=== PATIENT | male | born 1995 | race Caucasian/White ===

== ENCOUNTER 2020-07-22 11:54 | Inpatient (IN) | payer MEDICAID ==
[~2020-07-22] VITALS: Ht 170.2 cm; Wt 94.9 kg
--- NOTE | 2020-07-22 12:57 | NUR ---
BIBS FROM HOME TO ER BED 7. AAOX4. NOT IN RESP DISTRESS, BREATHIGN EVEN AND UNLABORED. AMBULATORY. IN FOR POLYDIPSIA AND FEELING WEAK. PT REPORTS THAT HE IS ALWAYS THIRSTY. HE REPORT HAVEING THE COVID VACCINE BACK IN JULY 08 THEN THE SYMPTOMS STARTED. MD WAS AT THE BEDSIDE FOR EVAL. ORDER RECEIVED, NOTED AND CARRIED OUT.
[2020-07-22] MEDS ORDERED: IV NS 0.9% 1,000 ML BAG IV ONE ×2 (13:00→14:00)
[2020-07-22 13:25] LABS: BASOPHILS # (AUTO) 0.1 /CMM (0.0-0.2); BASOPHILS % (AUTO) 0.8 % (0.0-2.0); HEMATOCRIT 51 % (39-51); HEMOGLOBIN 17.3 g/dL (13.5-17.5); LYMPHOCYTES # (AUTO) 1.9 /CMM (0.8-4.8); LYMPHOCYTES % (AUTO) 21.4 % (20.0-44.0); MEAN CORPUSCULAR HGB CONC 34 g/dl (31.0-36.0); MEAN CORPUSCULAR VOLUME 93 fL (80-96); MONOCYTES # (AUTO) 0.5 /CMM (0.1-1.30); MONOCYTES % (AUTO) 6.3 % (2.0-12.0); NEUTROPHILS # (AUTO) 6.1 /CMM (1.8-8.9); NEUTROPHILS % (AUTO) 70.5 % (43.0-81.0); PLATELET COUNT (AUTO) 192 /CMM (150-450); RED BLOOD CELL COUNT(AUTO) 5.48 MIL/uL (4.5-6.0); WHITE BLOOD COUNT (AUTO) 8.7 K/uL (4.3-11.0)
[2020-07-22 13:41] LABS: ALANINE AMINOTRANSFERASE 187 U/L (12-78); ALBUMIN 4.3 g/dL (3.4-5.0); ALKALINE PHOSPHATASE 125 U/L (46-116); ASPARTATE AMINOTRANSFERASE 52 U/L (15-37); BILIRUBIN,DIRECT 0.5 mg/dL (0.0-0.2); BILIRUBIN,TOTAL 1.4 mg/dL (0.2-1.0); CARBON DIOXIDE 23 mmol/L (21-32); CHLORIDE 95 mmol/L (98-107); CREATININE 1.4 mg/dL (0.6-1.3); LIPASE 185 U/L (73-393); SODIUM SERUM 133 mmol/L (136-145); TOTAL PROTEIN, SERUM 8.2 g/dL (6.4-8.2); UREA NITROGEN, BLOOD 14 mg/dL (7-18)
[2020-07-22 13:47] LABS: GLUCOSE 739 mg/dL (74-106)
[2020-07-22] MEDS ORDERED: INSULIN REGULAR, HUMAN 100 UNIT/ML 10 ML VIAL ONE (13:54)
[2020-07-22] MEDS ORDERED: INSULIN REGULAR, HUMAN 100 UNIT/ML 10 ML VIAL SQ ONE (14:00)
--- NOTE | 2020-07-22 14:02 | NUR ---
[facility].
--- NOTE | 2020-07-22 14:18 | NUR ---
CALLED NURSING SUP FOR M/S BED.
--- NOTE | 2020-07-22 16:23 | NUR ---
NURSING SUP GAVE [phone].
--- NOTE | 2020-07-22 16:40 | NUR ---
RECEIVED REPORT FROM SONYA BROWER FOR TRUMAN
--- NOTE | 2020-07-22 16:42 | NUR ---
REPORT GIVEN TO SONYA REED FOR TRUMAN
--- NOTE | 2020-07-22 16:50 | NUR ---
MS RN NOTE PATIENT WAS BROUGHT UP VIA GURNEY. PT IS A/O X4. AMBULATORY. ON ROOM AIR, NO SOB NOTED. IN NO APPARENT DISTRESS. DENIES ANY PAIN OR DISCOMFORT AT THIS TIME. IV ACCESS ON L AC #18, INTACT. BS OF 310, INSULIN GIVEN PER PROTOCOL. ABLE TO MAKE NEEDS KNOWN. SAFETY MEASURES MAINTAINED. BED IN LOWEST POSITION, BRAKES LOCKED. SIDE RAILS UP X2. CALL LIGHT WITHIN REACH. WILL ENDORSE CONTINUITY OF CARE TO ONCOMING SHIFT.
--- NOTE | 2020-07-22 16:56 | NUR ---
PT TRANSPORTED TO UNIT W/ EMT AT [facility] ON [facility] ON STABLE CONDITION.
[2020-07-22 17:00] VITALS: BP 121/75
[2020-07-22] MEDS ORDERED: ACETAMINOPHEN 325 MG TABLET PO PRN (17:00)
[2020-07-22] MEDS ORDERED: ONDANSETRON HCL/PF 4 MG/2 ML VIAL IVP PRN (17:00)
[2020-07-22] MEDS ORDERED: MAGNESIUM HYDROXIDE 30 ML UDC PO PRN (17:00)
[2020-07-22] MEDS ORDERED: DEXTROSE 50%-WATER 50 ML DISP.SYRIN IV PRN (17:00)
[2020-07-22] MEDS ORDERED: MAG HYDROX/AL HYDROX/SIMETH 30 ML UDC PO PRN (17:00)
[2020-07-22] MEDS: BLOOD SUGAR DIAGNOSTIC 1 EACH STRIP IN SCH ×2 (17:43→20:54)
[2020-07-22] MEDS: INSULIN REGULAR, HUMAN 100 UNIT/ML 3 ML VIAL SQ PRN ×2 (17:45→20:50)
--- NOTE | 2020-07-22 19:10 | NUR ---
MS RN OPENING NOTES: RECEIVED PATIENT IN BED, AWAKE, A/O X4. NO S/S OF DISTRESS NOTED. CALL LIGHT WITHIN REACH. BED IN LOWEST AND LOCKED POSITION. NO COMPLAIN OF PAIN. AMBULATORY.
[2020-07-22 20:00] VITALS: BP 140/80
[2020-07-23 06:18] LABS: BASOPHILS # (AUTO) 0.1 /CMM (0.0-0.2); BASOPHILS % (AUTO) 0.8 % (0.0-2.0); EOSINOPHILS % (AUTO) 3.3 % (0.0-6.0); HEMATOCRIT 41 % (39-51); HEMOGLOBIN 14.4 g/dL (13.5-17.5); LYMPHOCYTES # (AUTO) 2.9 /CMM (0.8-4.8); MEAN CORPUSCULAR HGB CONC 35 g/dl (31.0-36.0); MEAN CORPUSCULAR VOLUME 90 fL (80-96); MONOCYTES # (AUTO) 0.5 /CMM (0.1-1.30); MONOCYTES % (AUTO) 6.8 % (2.0-12.0); NEUTROPHILS # (AUTO) 3.7 /CMM (1.8-8.9); NEUTROPHILS % (AUTO) 50.1 % (43.0-81.0); PLATELET COUNT (AUTO) 148 /CMM (150-450); RED BLOOD CELL COUNT(AUTO) 4.61 MIL/uL (4.5-6.0); WHITE BLOOD COUNT (AUTO) 7.4 K/uL (4.3-11.0)
[2020-07-23] MEDS: BLOOD SUGAR DIAGNOSTIC 1 EACH STRIP IN SCH ×2 (07:02→11:29)
[2020-07-23] MEDS: INSULIN REGULAR, HUMAN 100 UNIT/ML 3 ML VIAL SQ PRN ×2 (07:04→12:11)
--- NOTE | 2020-07-23 07:28 | NUR ---
MS RN OPENING NOTES RECEIVED PATIENT IN BED, AWAKE AND VERBALLY RESPONSIVE. A/O X4, ABLE TO MAKE NEEDS KNOWN. BREATHING EVEN AND UNLABORED, TOLERATING ROOM AIR. NO S/S OF DISTRESS. IV LINE ON LAC #18 INTACT AND PATENT. REMINDED OF FOLLOWING DIET FOR OPTIMAL GLYCEMIC CONTROL. SAFETY PRECS IN PLACE: CALL LIGHT WITHIN REACH, BED IN LOWEST AND LOCKED POSITION, SR UP X2. WILL CONTINUE TO MONITOR.
[2020-07-23] MEDS ORDERED: PANTOPRAZOLE 40 MG TABLET.DR PO SCH (07:30)
[2020-07-23 08:09] VITALS: BP 117/71
[2020-07-23 08:25] LABS: PHOSPHORUS 3.4 mg/dL (2.5-4.9); POTASSIUM 3.4 mmol/L (3.5-5.1)
[2020-07-23 08:34] LABS: CREATININE 0.9 mg/dL (0.6-1.3)
[2020-07-23] MEDS ORDERED: POTASSIUM CHLORIDE 20 MEQ TAB.PRT.SR PO ONE (11:00)
--- NOTE | 2020-07-23 14:21 | NUR ---
BENDING FRAME OPERATOR NOTES PATIENT WAS SEEN BY FAUSTINO BEAULIEU NP, W/ ORDER FOR DISCHARGE. DISCHARGE INSTRUCTION AND EDUCATION PROVIDED TO PATIENT. EDUCATED ABOUT DIABETES, BLOOD SUGAR CHECKS, AND INSULIN ADMINISTRATION; VERBAL INSTRUCTIONS AND DEMONSTRATION PROVIDED TO PATIENT APPLICABLE W/ RETURN DEMONSTRATION BY PATIENT ON DRAWING UP INSULIN USING INSULIN SYRINGE. EDUCATED WELL W/ DIET AND OPTING FOR SMALL FREQUENT MEALS DURING THE DAY. INFORMED ABOUT MEDICATIONS TO SCHOOL LIBRARIAN AT PREFERRED PHARMACY AND TO SEE THREADING MACHINE TENDER AT [facility] PER MECHANICAL MANUFACTURING ENGINEER AND MD'S RECOMMENDATIONS; PRESCRIPTION GIVEN TO PATIENT. PATIENT VERBALIZED UNDERSTANDING. DISCHARGE FORM AND BELONGINGS LIST FORM SIGNED BY PATIENT; ALL BELONGINGS ACCOUNTED FOR. NAME ARMBAND AND IV LINE REMOVED. NO SKIN ISSUES NOTED. ACCOMPANIED PATIENT TO THE LOBBY, PATIENT AMBULATORY W/ STEADY GAIT. PICKED UP BY MOM VIA PRIVATE CAR. CHARGE NURSE AND MD AWARE OF DISCHARGE.
[2020-07-23] MEDS ORDERED: INSULIN GLARGINE, 100 UNIT/ML CARTRIDGE SQ SCH (22:00)
== END 2020-07-23 14:30 | disposition home or self-care (01) | DRG 420 ==
LOC: ER 11:57 → MED 16:29
PROVIDERS: ADMIT Nurse Practitioner Family; ATTEND Nurse Practitioner Family
DX: E10.65 Type 1 diabetes mellitus with hyperglycemia (principal); E87.1 Hypo-osmolality and hyponatremia; R94.31 Abnormal electrocardiogram [ECG] [EKG]; J45.909 Unspecified asthma, uncomplicated; Z91.018 Allergy to other foods; Z20.822 Contact with and (suspected) exposure to COVID-19; R74.01 Elevation of levels of liver transaminase levels; Z83.3 Family history of diabetes mellitus; R94.4 Abnormal results of kidney function studies
CPT/HCPCS: 36415; 71045-TC; 76705-TC; 80048-TC; 80061-TC; 80076-TC; 82010-TC; 82962-TC; 83690-TC; 83735-TC; 84100-TC; 84484-TC; 85025-TC; 87081-TC; 93307-TC; C9803; G0378; J1815; J7030; U0003